=== PATIENT | female | born 1980 | race African-American/Black ===

== ENCOUNTER 2020-01-04 16:32 | Emergency (ER) | payer MEDICAID ==
[~2020-01-04] VITALS: Ht 170.2 cm; Wt 95.0 kg
[2020-01-04 19:05] LABS: BASOPHILS % 1.5 % (0.0-2.0); EOSINOPHILS % 4.1 % (0.0-5.0); HEMATOCRIT. 42.6 % (36.0-48.0); HEMOGLOBIN. 13.8 g/dL (12.0-16.0); LYMPHOCYTES % 20.5 % (20.0-50.0); MEAN CORPUSCULAR HEMOGLOBIN 27.3 pg (28.0-32.0); MEAN CORPUSCULAR VOLUME 83.8 fL (81.0-99.0); MEAN PLATELET VOLUME 9.2 fl (7.4-10.4); MONOCYTES % 13.2 % (2.0-8.0); NEUTROPHILS % 60.7 % (40.0-76.0); PLATELET 360 x1000/uL (130-400); RED BLOOD CELL COUNT 5.08 mill/uL (4.2-5.4); RED CELL DISTRIBUTION WIDTH 14.1 % (11.6-14.6)
[2020-01-04 19:11] LABS: CHLORIDE 106 mEq/L (98-107)
[2020-01-04 21:50] VITALS: BP 112/73
== END 2020-01-04 21:51 | disposition home or self-care (01) ==
LOC: ER 16:32
DX: G93.0 Cerebral cysts (principal); R20.2 Paresthesia of skin; J45.909 Unspecified asthma, uncomplicated; Z98.890 Other specified postprocedural states
CPT/HCPCS: 36415; 80053; 81025; 84443; 84484; 85025; 93005; 99285

== ENCOUNTER 2025-09-10 16:29 | Emergency (ER) | payer OTHER ==
[~2025-09-10] VITALS: Ht 167.6 cm; Wt 100.0 kg
[2025-09-10 16:56] VITALS: O2SAT 98
[2025-09-10] MEDS: ACETAMINOPHEN 500MG TABLET PO ONE (18:12)
[2025-09-10] MEDS: TETANUS, DIPHTHERIA, PERTUSSIS VAC/PF 0.5ML (>10YR OLD) IM ONE (18:13)
[2025-09-10] MEDS ORDERED: CEPH500C2 MT (18:54)
[2025-09-10] MEDS ORDERED: SULF1TAB44 MT (18:55)
[2025-09-10] MEDS ORDERED: BO1 TP (19:28)
[2025-09-10] MEDS ORDERED: ACET-2708 MT (19:28)
[2025-09-10 19:44] VITALS: BP 139/85; PULSE 9; RESP 18; TEMP 36.7; O2SAT 98
== END 2025-09-10 19:46 | disposition home or self-care (01) ==
LOC: ER 16:29
DX: S91.312A Laceration without foreign body, left foot, initial encounter (principal); J45.909 Unspecified asthma, uncomplicated; Z98.890 Other specified postprocedural states; Z88.0 Allergy status to penicillin; Z88.6 Allergy status to analgesic agent; X58.XXXA Exposure to other specified factors, initial encounter; Y93.89 Activity, other specified; Y92.89 Other specified places as the place of occurrence of the external cause; Y99.8 Other external cause status
CPT/HCPCS: 90715; 90471; 99283; Z7610 ×2